=== PATIENT | female | born 1980 | race Caucasian/White ===

== ENCOUNTER 2025-11-01 15:20 | Emergency (ER) | payer BC, SELFPAY ==
[2025-11-01 15:33] VITALS: BP 137/97
[2025-11-01 15:55] LABS: Hematocrit 39.4 % (37.0-47.0); Hemoglobin 13.9 g/dL (12.0-16.0); Mean Corp Hgb Conc. 35.3 g/dL (33.0-37.0); Mean Corpuscular Volume 100.0 fL (81.0-99.0); Nucleated Red Blood Cells % 0 %; Platelet Count 309 10^3/uL (130-400); Red Cell Dist. Width 12.5 % (11.5-14.5)
[2025-11-01 16:06] LABS: ALT (SGPT) 42 U/L (0-35); AST (SGOT) 51 U/L (14-36); Albumin 4.7 g/dl (3.5-5.0); Alkaline Phosphatase 117 U/L (38-126); Blood Urea Nitrogen 6 mg/dl (7-17); Calcium 9.2 mg/dl (8.4-10.2); Carbon Dioxide 28 mmol/L (22-30); Chloride 99 mmol/L (98-107); Glucose 98 mg/dl (70-99); Potassium 4.1 mmol/L (3.5-5.1); Sodium 135 mmol/L (135-145); Total Protein 8.2 g/dl (6.3-8.2); eGFR > 60.00
[2025-11-01 16:17] LABS: Troponin I < 0.012 ng/ml
--- NOTE | 2025-11-01 23:31 | ED.GENMED ---
History of Present Illness
General
Chief Complaint: Chest Pain
Source: patient
Exam Limitations: none
Time Seen by Provider: 11/01/25 18:05
Nursing documentation reviewed up to this point in time: agreed with
History of Present Illness
History of Present Illness:
Patient to the emergency department for evaluation of left upper quadrant abdominal pain, pain under left lower ribs. Symptoms started approximately 1 week ago. No aggravating or alleviating factors. She denies any fever chills or recent illness.
She denies any nausea vomiting or diarrhea. No history of trauma. Brought self to the emergency department for evaluation.
Past History
Past History
ED Past Medical History: None
ED Past Surgical History: Tonsilectomy
Social History
Alcohol: Daily
Review of Systems
Review of Systems
Allergies reviewed?: Yes
All Other Systems: ROS reviewed and negative except as documented in HPI and ROS
Constitutional: Reports no symptoms
EENT: Reports no symptoms
Respiratory: Reports no symptoms
Cardiac: Reports no symptoms
ABD/GI: Reports abdominal pain (Left upper quadrant abdominal pain)
: Reports no symptoms
Musculoskeletal: Reports no symptoms
Skin: Reports no symptoms
Neurological: Reports no symptoms
Psychiatric: Reports no symptoms
Phy Exam
General Physical Exam
General Presentation: well appearing and no apparent distress
General age: appears stated age
General Skin: warm and dry
General Habitus: normal
Cardiovascular Exam
Cardiovascular Exam: regular rate/rhythm and no edema
Pulmonary Exam
Pulmonary Exam: lungs clear and no respiratory distress
Gastrointestinal Exam
Gastrointestinal Exam: normal bowel sounds, soft, no organomegaly, non distended, no cva tenderness and other (Patient to the emergency department with complaint of left upper quadrant abdominal pain. No abdominal pain on examination. Pain located
left lateral ribs.)
Palpation: left upper quadrant: Mild tenderness
Musculoskeletal Exam
Musculoskeletal Exam: full ROM, neuro vasc intact and other (Pain to left lateral ribs.)
Skin Exam
Skin Exam: normal color, warm/dry and no rash
Psychiatric Exam
Psychiatric Exam: normal mood/affect
Scores
Heart Score for Chest Pain Patients
STEMI patient?: Not applicable
Course
Orders/Labs/Results
Orders:
Orders
11/01/25 15:21
EKG [Electrocardiogram (*1)] Urgent
Reason for Study: Chest Pain
EKG- Treatment ONCE
11/01/25 15:45
Complete Blood Count/With Diff Urgent
Comprehensive Metabolic Panel Urgent
Troponin I Urgent
11/01/25 18:22
Ribs, Left 3 View W/PA Chest CR [CR Ribs-left 3 Vw W/pa Chest] Urgent
Comment:
Reason For Exam: left lateral pain
US Abdomen Complete/Upper Urgent
Comment:
Reason For Exam: LUQ pain
Abnormal Lab Results
11/01/25
15:45
RBC 3.94 L 10^6/uL
(4.20-5.40)
MCV 100.0 H fL
(81.0-99.0)
MCH 35.3 H pg
(27.0-31.0)
Absolute Monos (auto) 0.9 H 10^3/uL
(0.1-0.6)
BUN 6 L mg/dl
(7-17)
Creatinine 0.5 L mg/dL
(0.6-1.0)
AST 51 H U/L
(14-36)
ALT 42 H U/L
(0-35)
11/01/25 15:45
11/01/25 15:45
Vital Signs
Initial and Last Documented VS:
Initial Vital Signs
Temp Pulse Resp BP Pulse Ox
97.6 F 71 18 137/97 95
11/01/25 15:33 11/01/25 15:33 11/01/25 15:33 11/01/25 15:33 11/01/25 15:33
Last Documented Vital Signs
Temp Pulse Resp BP Pulse Ox
97.6 F 85 17 137/97 97
11/01/25 15:33 11/01/25 20:30 11/01/25 20:30 11/01/25 15:33 11/01/25 23:34
*Radiology
Radiology exam reviewed: radiology read reviewed
*Pulse Oximetry
SaO2: 97
Oxygen Mode of Delivery: Room air
Patient hypoxic: no
*Critical Care Note
Total Time (30-74mins, 75-104mins- exclusive of procedures): Not Applicable
Update Note
Update Note:
Patient to the emergency department with complaint of left upper quadrant pain. Pain also noted under left lower anterior ribs. No history of trauma. Vital signs are stable and she remains afebrile. Labs were reviewed. WBC 9.2. Mild elevation
in AST/ALT 51/42 otherwise CMP is unremarkable. Abdominal ultrasound was completed. Fatty infiltration of liver noted. No other acute findings. Rib series was negative for acute findings. Lab and imaging results were discussed with her. No
findings today to explain her discomfort. Will treat as musculoskeletal. She will be discharged home, close follow-up with PCP. She was given instructions on signs and symptoms to return to the emergency department and she is agreeable to this
plan.
ED Attending Note
-
Portions of this chart may have been created with voice recognition software.� Occasional wrong word or��sound alike� substitutions may have occurred due to the inherent limitations of voice recognition software.
Discharge Plan
Departure
Patient Disposition: Home (Routine Discharge)
Date of Disposition: 11/01/25
Time of Disposition: 20:35
Patient with high blood pressure during this ER visit?: No
Condition: Good
Covid-19: Not Applicable
Discharge Problem:
Chest wall pain
Instructions: Musculoskeletal Pain
Prescriptions:
New
hydrocodone-acetaminophen 5-325 mg tablet
1 tab PO Q4H PRN (Reason: Pain) Qty: 10 0RF
Referrals:
UNKNOWN - PT NOT,INTERVIEWE [Family Provider]
Activity Restrictions/Additional Instructions:
Follow-up with your family doctor
Interventions
Interventions:
*Risk Screen - Suicide Last Done: 11/01/25 15:33
*General Assessment Last Done: 11/01/25 15:33
*Neglect/Abuse Screening Last Done: 11/01/25 15:33
*ED COVID-19 Vaccine History Last Done: 11/01/25 15:33
*ED Influenza Vaccine History Last Done: 11/01/25 15:33
*Nursing Disposition Last Done: 11/01/25 20:55
ED- Cardiac Assessment Last Done: 11/01/25 18:15
Discharge Date and Time
Discharge Date/Time: 11/01/25 20:55
Print Language: ARMENIAN
== END 2025-11-01 20:55 | disposition home or self-care (01) ==
LOC: EMR 15:20
PROVIDERS: EMERGENCY PHYSICIAN Emergency Medicine
DX: R07.89 Other chest pain (principal)
CPT/HCPCS: 99284; 71101; 76700; 80053; 84484; 85025; 93005